=== PATIENT | male | born 2000 | race African-American/Black ===

== ENCOUNTER 2022-05-31 08:32 | Emergency (ER) | payer MEDICAID ==
[~2022-05-31] VITALS: Ht 185.4 cm; Wt 87.0 kg
[2022-05-31 08:36] VITALS: BP 130/90
[2022-05-31] MEDS ORDERED: NAPR500T7 MT (13:36)
[2022-05-31] MEDS ORDERED: ACET-2708 MT (13:36)
== END 2022-05-31 13:53 | disposition home or self-care (01) ==
LOC: ER 08:32
DX: S83.8X2A Sprain of other specified parts of left knee, initial encounter (principal); X58.XXXA Exposure to other specified factors, initial encounter; Y93.67 Activity, basketball; Y92.89 Other specified places as the place of occurrence of the external cause; Y99.8 Other external cause status
CPT/HCPCS: 73562; 99283